=== PATIENT | male | born 1935 | race Two or more races ===

== ENCOUNTER 2017-05-17 07:23 | Outpatient (CLI) | payer OTHER ==
[~2017-05-17 07:23] MED LIST: ALTACE10 MG; ASA81 MG; GABAPENTIN100 MG; PLAVIX75 MG; PROPRANOLOL HCL60 MG; RAMIPRIL5 MG; TOPAMAX25 M1; ZOCOR20 MG
== END 2017-05-17 07:35 | disposition home or self-care (01) ==
LOC: NUCLEAR 07:23
DX: I20.0 Unstable angina (principal); I25.10 Atherosclerotic heart disease of native coronary artery without angina pectoris
CPT/HCPCS: 78452; 93017; A9500; J0153

== ENCOUNTER 2017-10-19 23:18 | Emergency (ER) | payer OTHER ==
[~2017-10-19] VITALS: Ht 160 cm; Wt 56.7 kg
== END 2017-10-20 06:56 | disposition home or self-care (01) ==
LOC: ER 23:18 → CPU-OBS 23:20 → ER 23:20
DX: R07.89 Other chest pain (principal)

== ENCOUNTER 2018-11-27 03:52 | Emergency (ER) | payer OTHER ==
[~2018-11-27] VITALS: Ht 162.6 cm; Wt 54.4 kg
[2018-11-27] MEDS ORDERED: DICY20TA (05:56)
[2018-11-27] MEDS ORDERED: MECLIZINE HCL12.5 MG (05:56)
[2018-11-27] MEDS ORDERED: MELATONIN5 MG (05:56)
[2018-11-27] MEDS ORDERED: NORVASC5 MG (05:56)
== END 2018-11-27 23:14 | disposition home or self-care (01) ==
LOC: ER 03:52
DX: K40.90 Unilateral inguinal hernia, without obstruction or gangrene, not specified as recurrent (principal); K56.699 Other intestinal obstruction unspecified as to partial versus complete obstruction; I16.0 Hypertensive urgency; I10 Essential (primary) hypertension

== ENCOUNTER 2019-06-11 05:40 | Day surgery (SDC) | payer OTHER ==
[~2019-06-11 05:40] MED LIST changes: +ALTACE10 MG PO; +DICY20TA; +MECLIZINE HCL12.5 MG; +MELATONIN5 MG; +NORVASC5 MG PO; +SAW PALMETTO450 MG PO
[2019-06-11] MEDS ORDERED: MIRALAX17 GM PO (09:59)
[2019-06-11] MEDS ORDERED: ULTRAM50 MG PO (09:59)
[2019-06-11] MEDS ORDERED: TYLENOL ARTHRI650 MG PO (09:59)
== END 2019-06-11 15:40 | disposition home or self-care (01) ==
LOC: CIR.AMB 05:40
DX: K40.91 Unilateral inguinal hernia, without obstruction or gangrene, recurrent (principal); K42.9 Umbilical hernia without obstruction or gangrene